=== PATIENT | female | born 1980 | race African-American/Black ===

== ENCOUNTER 2018-06-10 05:19 | Inpatient (IN) ==
[2018-06-10] MEDS ORDERED: MEPERIDINE 50 MG/1 ML VIAL IV PRN (05:27)
[2018-06-10] MEDS ORDERED: LACTATED RINGERS 250 ML IV ONE (05:27)
[2018-06-10] MEDS ORDERED: ONDANSETRON 4 MG/2 ML VIAL IV PRN ×2 (05:27→13:34)
[2018-06-10] MEDS ORDERED: BUTORPHANOL 2 MG/ML VIAL IV PRN (05:27)
[2018-06-10] MEDS ORDERED: OXYTOCIN/LR 20 UNIT/1,000 ML BAG IV SCH (05:30)
[2018-06-10 06:01] LABS: Basophils % 0.3 % (0.0-0.8); Eosinophils # 0.1 10*3/uL (0.0-0.87); Hematocrit 37.3 VOL% (35.7-47.0); Hemoglobin 11.8 GM/DL (12.0-16.0); Immature Granulocytes % 0.5 %; Immature Granulocytes Absolute 0.04 #; Lymphocytes # 2.6 10*3/uL (1.4-4.0); Lymphocytes % 29.8 % (21.3-54.2); Mean Corpuscular HGB Conc 31.6 GM/DL (32-36); Mean Corpuscular Hemoglobin 27 PG (27-34); Mean Corpuscular Volume 86.5 FL (87-102); Mean Platelet Volume 13.9 FL (9.6-12.0); Monocytes # 0.7 10*3/uL (0.11-0.8); Monocytes % 7.6 % (1.7-12.7); Neutrophils # 5.3 10*3/uL (1.4-7.4); Neutrophils % 60.8 % (38.7-73.9); Platelet Count 165 T/CUMM (130-400); Red Blood Count 4.31 MC/CUMM (3.8-5.5); Red Cell Distribution Width 14.1 % (9.3-17.3); White Blood Count 8.8 T/CUMM (4-12)
[2018-06-10] MEDS: LACTATED RINGERS 1,000 ML IV SCH ×3 (06:05→11:47)
[2018-06-10] MEDS ORDERED: FAMOTIDINE 20 MG/2 ML VIAL IV ONE (09:34)
[2018-06-10] MEDS ORDERED: ePHEDrine 50 MG/ML AMP IV PRN (09:34)
[2018-06-10] MEDS ORDERED: NALOXONE 0.4 MG/ML VIAL IV PRN (09:34)
[2018-06-10] MEDS ORDERED: CITRIC ACID/SODIUM CITRATE 30 ML UDCUP PO ONE (09:34)
[2018-06-10] MEDS ORDERED: diphenhydrAMINE 50 MG/1 ML VIAL IV PRN (09:34)
[2018-06-10] MEDS ORDERED: PROMETHAZINE 25 MG/1 ML VIAL IM ONE (09:34)
[2018-06-10] MEDS ORDERED: hydrOXYzine HCL 25 MG/1 ML VIAL IM PRN (09:34)
[2018-06-10] MEDS ORDERED: fentaNYL 2 MCG/ROPIV 0.2% EPID 100 ML EPIDURAL SCH (10:00)
[2018-06-10] MEDS ORDERED: LIDOCAINE 1% 50 ML VIAL ONE (11:27)
[2018-06-10] MEDS ORDERED: miSOPROStol 200 MCG TABLET ONE (11:27)
[2018-06-10] MEDS ORDERED: METHYLERGONOVINE 0.2 MG/1 ML AMP ONE (11:28)
[2018-06-10] MEDS ORDERED: CARBOPROST TROMETHAMINE 250 MCG/ML AMP IM ONE (11:28)
[2018-06-10] MEDS ORDERED: fentaNYL 100 MCG/2 ML VIAL ONE (11:48)
[2018-06-10] MEDS ORDERED: oxyCODONE/ACETAMINOPHEN 5-325 MG TABLET PO PRN (13:34)
[2018-06-10] MEDS ORDERED: BENZOCAINE 20%/MENTHOL 0.5% SPRAY 56 GM CAN TOP PRN (13:34)
[2018-06-10] MEDS ORDERED: HYDROCORTISONE 2.5% RECTAL CREAM 30 GM TUBE TOP PRN (13:34)
[2018-06-10] MEDS ORDERED: OXYTOCIN/LR 20 UNIT/1,000 ML BAG IV ONE (13:34)
[2018-06-10] MEDS ORDERED: BISACODYL 10 MG SUPP RECTAL PRN (13:34)
[2018-06-10] MEDS ORDERED: DIPH/TET/ACEL PERT BOOSTER VACCINE 0.5 ML VIAL IM ONE (13:34)
[2018-06-10] MEDS ORDERED: ACETAMINOPHEN 325 MG TABLET PO PRN (13:34)
[2018-06-10] MEDS ORDERED: IBUPROFEN 800 MG TABLET PO PRN (13:34)
[2018-06-10] MEDS ORDERED: LANOLIN 50% CREAM 0.3 OZ TUBE TOP PRN (13:34)
[2018-06-10] MEDS ORDERED: WITCH HAZEL PADS 100/JAR TOP PRN (13:34)
[2018-06-10] MEDS ORDERED: RHO(D) IMMUNE GLOBULIN 300 MCG SYRINGE IM ONE (13:34)
[2018-06-10] MEDS ORDERED: MEASLES/MUMPS/RUBELLA VACCINE 0.5 ML VIAL SUBCUT ONE (13:34)
[2018-06-10] MEDS: oxyCODONE/ACETAMINOPHEN 5-325 MG TABLET PO PRN (17:48)
[2018-06-10] MEDS: DOCUSATE SODIUM 100 MG CAPSULE PO SCH (21:57)
[2018-06-11 06:06] LABS: Basophils % 0.2 % (0.0-0.8); Eosinophils # 0.1 10*3/uL (0.0-0.87); Eosinophils % 1.2 % (0.00-10.9); Hemoglobin 10.2 GM/DL (12.0-16.0); Immature Granulocytes % 0.4 %; Immature Granulocytes Absolute 0.03 #; Lymphocytes # 2.1 10*3/uL (1.4-4.0); Lymphocytes % 25.1 % (21.3-54.2); Mean Corpuscular HGB Conc 31.9 GM/DL (32-36); Mean Corpuscular Hemoglobin 27 PG (27-34); Mean Platelet Volume 13.7 FL (9.6-12.0); Monocytes # 0.7 10*3/uL (0.11-0.8); Monocytes % 8.6 % (1.7-12.7); Neutrophils # 5.4 10*3/uL (1.4-7.4); Neutrophils % 64.5 % (38.7-73.9); Platelet Count 132 T/CUMM (130-400); Red Blood Count 3.72 MC/CUMM (3.8-5.5); Red Cell Distribution Width 14.3 % (9.3-17.3); White Blood Count 8.4 T/CUMM (4-12)
[2018-06-11] MEDS: DOCUSATE SODIUM 100 MG CAPSULE PO SCH ×2 (09:22→22:00)
[2018-06-11] MEDS: oxyCODONE/ACETAMINOPHEN 5-325 MG TABLET PO PRN (17:55)
[2018-06-12] MEDS: oxyCODONE/ACETAMINOPHEN 5-325 MG TABLET PO PRN (07:49)
[2018-06-12] MEDS: DOCUSATE SODIUM 100 MG CAPSULE PO SCH ×2 (07:56→09:24)
[2018-06-12 09:22] VITALS: BP 128/64
== END 2018-06-12 10:25 | disposition home or self-care (01) | DRG 807 ==
LOC: N.LDOUT 05:19 → N.LD 05:21 → N.OB 15:41
PROVIDERS: ADMIT Obstetrics & Gynecology; ATTEND Obstetrics & Gynecology